=== PATIENT | female | born 1935 | race Caucasian/White ===

== ENCOUNTER → 2020-03-29 | Day surgery (SDC) | payer MEDICARE, OTHER ==
[2020-03-24 09:18] LABS: BASOPHILS # (AUTO) 0.1 (0.0-0.1); BASOPHILS % 1.1 % (0.0-1.0); EOSINOPHILS # (AUTO) 0.2 (0.0-0.4); EOSINOPHILS % 3.5 % (0.0-6.0); HEMATOCRIT 40.4 % (34.2-44.1); HEMOGLOBIN 13.2 g/dL (12.0-16.0); MEAN CORPUSCULAR HEMOGLOBIN 30.1 pg (28-32); MEAN CORPUSCULAR HGB CONC 32.7 g/dL (31-35); MONOCYTES # (AUTO) 0.7 (0.2-0.8); MONOCYTES % 10.6 % (4.4-11.3); NEUTROPHILS # (AUTO) 3.6 (2.1-6.9); NEUTROPHILS % 53.9 % (38.7-80.0); PLATELET COUNT 278 x10e3/uL (140-360); RED BLOOD COUNT 4.39 x10e6/uL (3.6-5.1); RED CELL DISTRIBUTION WIDTH 13.4 % (11.7-14.4)
[~2020-03-29] MED LIST: AMBIEN5 MG PO; AMLODIPINE BESYL5 MG PO; ASPIR 8181 MG PO; BENICAR20 MG PO; CO Q10200 MG PO; HYDROCHLOROTHIA25 MG PO; HYOSCYAMINE 0.125 MG TAB ONE; LIDOCAINE HCL 2% LOCAL INJ 5 ML SDV VIAL INJ ONE; LOVASTATIN10 MG PO; MEVACOR20 MG PO; PROPOFOL IV EMULSION 10 MG/ML 20 ML VIAL ONE; SYNTHROID50 MCG PO
[2020-03-29 12:30] VITALS: BP 152/80
--- NOTE | 2020-03-29 13:20 | Operative Report ---
DATE OF PROCEDURE: 03/29/2020 SURGEON: Michael Mcelroy MD PROCEDURE: An EGD with biopsies and colonoscopy with biopsies. INDICATIONS FOR EGD: History of hematemesis. INDICATIONS FOR COLONOSCOPY: Surveillance colonoscopy, personal history of colon polyps, alternating bouts of constipation and diarrhea, left lower quadrant pain. MEDICATIONS: The patient was done under MAC. Please see anesthesiologist's note. PROCEDURE IN DETAIL: With the patient in the left lateral decubitus position, a flexible fiberoptic Olympus gastroscope was introduced into the esophagus under direct visualization without any difficulty. There was some patchy erythema noted in distal esophagus. The scope was then advanced with ease into the stomach traversing a small sliding hiatal hernia. Mucosa overlying the antrum and the body revealed some patchy erythema and [id number] edema. Biopsies were obtained, sent to stain for H. pylori. Pylorus was of normal contour and shape, was intubated with ease, and the scope was advanced all the way to the second portion of the duodenum. The scope was then withdrawn slowly. Mucosa overlying the proximal second portion and the duodenal bulb appeared to be within normal limits. The scope was then withdrawn back into the stomach and retroflexed and mucosa overlying the fundus and the cardia appeared to be within normal limits. The scope was then straightened out. It was subsequently withdrawn. The patient tolerated the procedure well. IMPRESSION: 1. Mild distal esophagitis. 2. Small sliding hiatal hernia. 3. Gastritis, biopsied. Biopsies sent to stain for Helicobacter pylori. 4. Rule out sprue. PLAN: Follow up histology. Initiate Protonix 40 mg one p.o. q.a.m. a.c. The patient was then turned around. After adequate lubrication of the anal canal, a flexible fiberoptic Olympus colonoscope was inserted into the rectum with ease and advanced all the way to the cecum. Diverticular disease was noted throughout the colon. The scope was then withdrawn slowly. Mucosa overlying the cecum, ascending colon, transverse other than for diverticulosis appeared to be within normal limits. Some mild patchy inflammatory changes were noted in the left colon and the rectum. Random biopsies were obtained. The scope was then retroflexed into the distal rectum and the area around the dentate line appeared to be within normal limits. The scope was then straightened out. It was subsequently withdrawn after securing an adequate stool specimen that was sent for the appropriate stool studies. The patient tolerated procedure well. IMPRESSION: 1. Pandiverticulosis. 2. Mild patchy left-sided colitis. 3. Proctitis, mild. PLAN: 1. Follow up histology. 2. Follow up stool studies. 3. Initiate VSL #3 one p.o. b.i.d. Michael Mcelroy MD [facility] [place][id number] cc: Malick Mcelroy MD
[2020-03-29 14:10] LABS: WBC,FECAL (FECAL LACTOFERRIN) NEGATIVE (NEGATIVE)
[2020-03-29 14:11] LABS: C DIFFICILE TOXIN A&B AMP PROB NEGATIVE (NEGATIVE)
== END | disposition home or self-care (01) ==
LOC: OR 08:23
PROVIDERS: ATTEND Internal Medicine Gastroenterology
DX: K29.70 Gastritis, unspecified, without bleeding (principal); K51.50 Left sided colitis without complications; K29.80 Duodenitis without bleeding; K20.9 Esophagitis, unspecified; K44.9 Diaphragmatic hernia without obstruction or gangrene; K57.30 Diverticulosis of large intestine without perforation or abscess without bleeding; K62.89 Other specified diseases of anus and rectum; M19.90 Unspecified osteoarthritis, unspecified site; G47.33 Obstructive sleep apnea (adult) (pediatric); I10 Essential (primary) hypertension; Z88.6 Allergy status to analgesic agent; Z88.0 Allergy status to penicillin; Z01.810 Encounter for preprocedural cardiovascular examination; Z01.812 Encounter for preprocedural laboratory examination; Z11.59 Encounter for screening for other viral diseases; Z79.82 Long term (current) use of aspirin; Z68.25 Body mass index [BMI] 25.0-25.9, adult; Z86.010 Personal history of colon polyps
CPT/HCPCS: 36415; 43239; 45380; 83630; 83993; 85025; 87045; 87177; 87328; 87493; 87635; 88305; 88312; 93005; J2001; J2704; 45378; 45379

== ENCOUNTER → 2020-06-15 | Outpatient (CLI) | payer MEDICARE, OTHER ==
[~2020-06-15] MED LIST changes: -HYOSCYAMINE 0.125 MG TAB ONE; +IOPAMIDOL 370 MG/ML 200 ML INFUS..BTL INJ ONE; -LIDOCAINE HCL 2% LOCAL INJ 5 ML SDV VIAL INJ ONE; -PROPOFOL IV EMULSION 10 MG/ML 20 ML VIAL ONE; +SODIUM CHLORIDE 0.9% 50ML 50 ML ONE
[2020-06-15 09:08] LABS: CREATININE, SERUM 0.96 mg/dL (0.57-1.11)
--- NOTE | 2020-06-15 11:10 | Diagnostic Imaging Report ---
CT of the abdomen and pelvis, with contrast. History: Abdominal pain. Comparison: None available. Technique: Multidetector CT scanning of the abdomen and pelvis was performed from the level of the lung bases to the inferior pubic rami after intravenous administration of contrast. Coronal and sagittal multiplanar reformations were obtained. RADIATION DOSE: Total DLP: 319.03 mGy*cm Dose modulation, iterative reconstruction, and/or weight based adjustment of the mA/kV was utilized to reduce the radiation dose to as low as reasonably achievable. FINDINGS: There is a 6 mm pulmonary nodule identified within the right lower lobe (axial image 9). There is a 5 mm pulmonary nodule identified within the left lower lobe (axial image 5). The imaged portion of the heart demonstrates no significant abnormalities. The liver is normal in size and attenuation without evidence for focal abnormality. The gallbladder is surgically absent. There is no intrahepatic biliary ductal dilatation. There is mild prominence of the common bile duct measuring 8 mm likely reflecting reservoir phenomenon post cholecystectomy. No radiopaque stones are identified within the biliary ductal system. The stomach, spleen, pancreas, and bilateral adrenal glands demonstrate no significant abnormalities. The kidneys are normal in size and location and enhance symmetrically. Mild cortical scarring noted on the right. There is a 3.2 x 2.7 cm cyst identified arising off the mid right. There is no evidence for nephrolithiasis or hydronephrosis. No ureteral stone or dilatation is appreciated. The partially distended urinary bladder demonstrates no significant abnormalities. The uterus is surgically absent. No abnormal adnexal masses are identified. Scattered phleboliths noted within the pelvis. The abdominal aorta is normal course and caliber with atherosclerotic calcifications. The IVC is unremarkable. Please note evaluation the bowel is limited without the use of enteric contrast material. The visualized loops of small and large bowel demonstrate no evidence of obstruction or inflammation. Diverticula are noted within the sigmoid and descending colon without evidence for adjacent inflammatory change to suggest acute diverticulitis. The appendix is not definitively visualized but there is no evidence of inflammation within its expected location with right lower quadrant. There is no ascites or intraperitoneal free air. A surgical clip is noted within the anterior right lower quadrant. No abnormally enlarged lymph nodes are identified within the abdomen or pelvis. There is a tiny fat-containing abdominal hernia present. There is mild dextroscoliosis of the thoracolumbar spine. There are multilevel degenerative changes of the lumbar spine most prominent at L2-L3 and L4-L5 where there is intervertebral disc space narrowing and associated endplate changes/sclerosis. There is no evidence for acute fracture or destructive process. The extraperitoneal soft tissues are unremarkable. IMPRESSION: 1. No acute abdominopelvic process identified to correlate with the patient's abdominal pain. 2. Diverticulosis coli without evidence for acute diverticulitis. 3. 6 mm pulmonary nodule identified within the right lower lobe and 5 mm pulmonary nodule identified within the left lower lobe. In a low-risk patient, no follow-up examination is warranted. In a high-risk patient, recommend [address] follow up examination. 4. Status post cholecystectomy and hysterectomy. Signed by: Dr. Junior Trevino MD on 06/15/2020 11:07 AM
== END ==
LOC: CT 08:27
PROVIDERS: ATTEND Internal Medicine Gastroenterology
DX: R10.9 Unspecified abdominal pain (principal)
CPT/HCPCS: 36415; 74177; 82565; 84520; Q9967

== ENCOUNTER → 2021-02-14 | Outpatient (CLI) | payer MEDICARE, OTHER ==
[~2021-02-14] MED LIST changes: -IOPAMIDOL 370 MG/ML 200 ML INFUS..BTL INJ ONE; -SODIUM CHLORIDE 0.9% 50ML 50 ML ONE
== END ==
LOC: RAD 13:46
DX: M25.552 Pain in left hip (principal); M25.551 Pain in right hip
CPT/HCPCS: 73521

== ENCOUNTER → 2022-05-29 | Outpatient (CLI) | payer MEDICARE | LOC: RAD 11:16 | DX: M25.511 Pain in right shoulder (principal); M25.531 Pain in right wrist; M25.551 Pain in right hip; M25.561 Pain in right knee; Z91.81 History of falling ==

== ENCOUNTER → 2023-01-13 | Outpatient (CLI) | payer MEDICARE, OTHER | LOC: RAD 16:05 | PROVIDERS: ATTEND Internal Medicine | DX: M54.2 Cervicalgia (principal); M79.2 Neuralgia and neuritis, unspecified; M79.672 Pain in left foot | CPT/HCPCS: 72040 ==